=== PATIENT | female | born 1990 | race Caucasian/White ===

== ENCOUNTER 2016-12-29 20:13 | Emergency (ER) | payer BC ==
[~2016-12-29] VITALS: Ht 165.1 cm; Wt 73.4 kg
[~2016-12-29 20:13] MED LIST: ONDA4TAB7 SL
[2016-12-29 20:24] VITALS: TEMP 36.7; Ht 165.1 cm; Wt 73.4 kg
--- NOTE | 2016-12-29 20:31 | EMERGENCY ROOM VISIT NOTE ---
History Report prepared by Nataliia: Hayden Barboza Under the Supervision of: Dr. Terrance Boston M.D. First contact with patient: 20:26 Chief Complaint: BLEEDING Stated Complaint: TONSILS OUT THIS AM,BLEEDING,VOMITING History of Present Illness The patient is a 26 year old female who presents to the Emergency Room with complaints of persistent bleeding s/p tonsillectomy this morning. The patient has been spitting up blood. The patient also started vomiting today. The patient tried a nausea suppository which did not help. She had Phenergan just prior to arrival. The patient spoke with Dr. Carter, ENT, over the phone. She denies any history of bleeding problems. She is not on any blood thinners. She has not had anything to eat or drink since the surgery. Source of History: patient Onset: this morning Position: other (oropharynx) Quality: other (s/p tonsillectomy bleed) Timing: other (persistent) Associated Symptoms: + nausea, + vomiting Review of Systems See HPI for pertinent positives & negatives. A total of 10 systems reviewed and were otherwise negative. Past Medical & Surgical Surgical Problems: (1) S/P tonsillectomy Family History No pertinent family history Social History Smoking Status: Never Smoker Marital Status: Current/Historical Medications Scheduled PRN Diphenhydramine Hcl (Benadryl Allergy), 25 MG PO DAILY PRN for ALLERGIC REACTION [Tylenol Codeine Liq], 15 ML PO Q4-6 PRN for Pain Allergies Coded Allergies: No Known Allergies (Unverified , 12/29/16) Physical Exam Vital Signs Date Time Temp Pulse Resp B/P Pulse Ox O2 Delivery O2 Flow Rate FiO2 12/30/16 02:03 95 20 131/80 98 12/30/16 00:38 105 20 115/77 96 Room Air 12/29/16 23:03 104 20 118/84 97 Room Air 12/29/16 20:24 36.7 119 20 118/77 97 Room Air Physical Exam GENERAL: Patient is in moderate distress and is uncomfortable appearing. HEENT: No acute trauma, normocephalic atraumatic, mucous membranes dry, no nasal congestion, no scleral icterus. Scabbed bilateral tonsillar beds with a small area of mild venous bleeding on the medial aspect of the left tonsillar bed, some burn casas over the proximal left uvula. NECK: No stridor, no adenopathy, no meningismus, trachea is midline. LUNGS: No dyspnea. Clear to auscultation and equal bilaterally. No wheeze, no rhonchi. HEART: Tachycardic, regular rhythm. No murmurs, rubs, gallops appreciated. ABDOMEN: Soft, nontender, bowel sounds positive, no masses appreciated, no peritonitis. BACK: No midline tenderness, no CVA tenderness EXTREMITIES: Normal motion all extremities, no cyanosis, no edema. NEUROLOGIC: Alert and oriented, no acute motor or sensory deficits, no focal weakness, cranial nerves grossly intact. SKIN: No rash, no jaundice, no diaphoresis. Medical Decision & Procedures Laboratory Results 12/29/16 21:32 12/29/16 20:55 Test 12/29/16 20:55 12/29/16 21:32 Anion Gap 9.0 mmol/L (3-11) Est Creatinine Clear Calc Drug Dose 126.6 ml/min Estimated GFR () 139.6 Estimated GFR (Non- 120.5 BUN/Creatinine Ratio 15.7 (10-20) Calcium Level 8.6 mg/dl (8.5-10.1) Red Blood Count 4.07 M/uL (4.2-5.4) Mean Corpuscular Volume 86.2 fL (80-100) Mean Corpuscular Hemoglobin 30.0 pg (25-34) Mean Corpuscular Hemoglobin Concent 34.8 g/dl (32-36) RDW Standard Deviation 37.8 fL (36.4-46.3) RDW Coefficient of Variation 12.1 % (11.5-14.5) Mean Platelet Volume 9.0 fL (7.4-10.4) Laboratory results as reviewed by me. Medications Administered Medications (Trade) Dose Ordered Sig/Janna Route Start Time Stop Time Status Last Admin Dose Admin Fentanyl Citrate (Fentanyl Inj) 50 mcg NOW STAT IV 12/29/16 20:32 12/29/16 20:33 DC 12/29/16 20:54 50 MCG Ondansetron HCl 4 mg 4 mg NOW STAT IV 12/29/16 20:32 12/29/16 20:33 DC 12/29/16 20:51 4 MG Sodium Chloride (Nss 1000ml) 1,000 ml @ 999 mls/hr Q1H1M STAT IV 12/29/16 20:32 12/29/16 21:32 DC 12/29/16 20:54 999 MLS/HR Hydromorphone HCl 1 mg 1 mg NOW STAT IV 12/29/16 22:00 12/29/16 22:02 DC 12/29/16 22:04 1 MG Sodium Chloride (Nss 1000ml) 1,000 ml @ 200 mls/hr Q5H IV 12/29/16 22:00 12/30/16 02:37 DC 12/29/16 22:06 200 MLS/HR Ondansetron HCl (Zofran Inj) 4 mg NOW STAT IV 12/29/16 23:26 12/29/16 23:27 DC 12/29/16 23:32 4 MG Dexamethasone Sodium Phosphate (Decadron Inj) 10 mg NOW ONCE IV 12/30/16 00:45 12/30/16 00:46 DC 12/30/16 00:43 10 MG Acetaminophen/ Hydrocodone Bitart (Hydrocod/Apap Elix 7.5/325MG/ 15ML Home Pack) 1 homepack UD ONCE PO 12/30/16 00:45 12/30/16 00:46 DC 12/30/16 00:42 1 HOMEPACK Ondansetron HCl (ZOFRAN ODT 4MG Home Pack) 2 homepack UD ONCE PO 12/30/16 00:45 12/30/16 00:46 DC 12/30/16 00:43 2 HOMEPACK ED Course 2027: The patient was evaluated in room B4b. A complete history and physical exam was performed. 2031: NSS 1000 ml @ 999 mls/hr, Zofran 4 mg IV, Fentanyl 50 mcg IV. 2049: ENT consulted. 2129: Dr. Pleitez, ENT is at bedside with the patient. He will attempt to cauterize the wound. 0: NSS 1000 ml @ 200 mls/hr, Dilaudid 1 mg IV. 2220: The patient is feeling much better. She will get another liter of fluid. 2255: The patient will attempt to take some PO fluids. 2320: The patient is not sure if she wants to stay in the hospital yet. She will try more Zofran. 2326: Zofran 4 mg IV. Medical Decision 26 yr old female arrives with complaint of intractable emesis post tonsillectomy. Given zofran/pain meds with improvement though still vomiting with even sips of water. Was seen by ENT who cauterized mild bleeding area left tonsillar bed. Decadron given for uvula erythema and intractable vomiting. Still unable to keep down liquids even after many hours in department. Has been using rectal phenergan at home without success. Will have hospitalist evaluate for monitoring overnight. Consults Time Called: 2039 Consulting Physician: Dr. Pleitez, ENT Returned Call: 2049 Impression Primary Impression: Post-tonsillectomy hemorrhage Additional Impressions: Intractable vomiting Dehydration Scribe Attestation The scribe's documentation has been prepared under my direction and personally reviewed by me in its entirety. I confirm that the note above accurately reflects all work, treatment, procedures, and medical decision making performed by me. Departure Information Dispostion Home / Self-Care Referrals Eugene Carter D.O. Patient Instructions My [facility] Additional Instructions Continue to follow instructions as reviewed by ENT physician. Return at any time if you feel symptoms are worsening or other concerns, we are always here to help. You have received a narcotic pain medication. These medications may cause drowsiness and should not be used with other sedative medications. Do not drive , drink alcohol, perform dangerous activities, nor make important decisions after taking these medications. FDC use or inappropriate use may lead to addiction. Problem Qualifiers Additional Impressions: Intractable vomiting Vomiting type: unspecified Nausea presence: with nausea Qualified Codes: R11.2 - Nausea with vomiting, unspecified
[2016-12-29] MEDS ORDERED: SODIUM CHLORIDE 0.9% 1000ML 1,000 ML IV STA (20:32)
[2016-12-29] MEDS ORDERED: FENTANYL CITRATE INJ 50 MCG/1 ML 2 ML VIAL IV STA (20:32)
[2016-12-29] MEDS ORDERED: ONDANSETRON INJ 2 MG/ML 2 ML VIAL IV STA ×2 (20:32→23:26)
[2016-12-29] MEDS ORDERED: TYLENOL CODEINE PO (21:13)
[2016-12-29] MEDS ORDERED: DIPH1TAB PO (21:13)
[2016-12-29 21:34] LABS: BUN/CREATININE RATIO 15.7 (10-20); CALCIUM 8.6 mg/dl (8.5-10.1); CREATININE 0.67 mg/dl (0.60-1.20); POTASSIUM 3.7 mmol/L (3.5-5.1)
[2016-12-29 21:39] LABS: HEMATOCRIT 35.1 % (37-47); MEAN CELL VOLUME 86.2 fL (80-100); MEAN CORPUSCULAR HGB CONC 34.8 g/dl (32-36); PLATELET COUNT 286 K/uL (130-400); RED BLOOD COUNT 4.07 M/uL (4.2-5.4); WHITE BLOOD COUNT 11.68 K/uL (4.8-10.8)
[2016-12-29] MEDS ORDERED: SODIUM CHLORIDE 0.9% 1000ML 1,000 ML IV SCH (22:00)
[2016-12-29] MEDS ORDERED: HYDROmorphone INJ 1 MG/ML SYR IV STA (22:00)
[2016-12-30] MEDS ORDERED: HYDROCODONE/APAP ELIX 60ML HOME PACK PO ONE (00:45)
[2016-12-30] MEDS ORDERED: DEXAMETHASONE SOD INJ 10 MG/ML VIAL IV ONE (00:45)
[2016-12-30] MEDS ORDERED: ONDANSETRON HOME PACK 4MG OD TAB PO ONE (00:45)
[2016-12-30 02:03] VITALS: BP 131/80; PULSE 95; O2SAT 98
--- NOTE | 2016-12-30 06:53 | ENT CONSULTATION ---
DATE OF CONSULTATION: 12/29/2016 REASON FOR CONSULTATION: I have been asked by Dr. Terrance Boston in the [facility] Emergency Room to evaluate this patient with post-tonsillectomy hemorrhage. HISTORY OF PRESENT ILLNESS: The patient is a 26-year-old female who is postoperative day zero status post tonsillectomy for history of recurrent acute tonsillitis by Dr. Eugene Carter at [facility] today. She has had problems with postoperative nausea and vomiting and upon vomiting she developed some bleeding from the left tonsillar fossa. Of note, she had bleeding in the recovery room, which required silver nitrate cauterization per patient's report. Estimated blood loss is 1/4 cup of blood. She has not been able to tolerate anything by mouth including her pain medicine. She was given Tylenol with codeine which she says sandoval and she is unable to tolerate it. She is asking for a different narcotic pain prescription. ALLERGIES: No known drug allergies. MEDICATIONS: Tylenol with Codeine. PAST MEDICAL HISTORY: Recurrent acute tonsillitis. PAST SURGICAL HISTORY: As above as well as status post wisdom tooth extraction. FAMILY HISTORY: Noncontributory. There are no bleeding disorders or malignant hyperthermia. SOCIAL HISTORY: The patient is and her is present in the room. She denies tobacco or illicit drug use. She drinks alcohol rarely. REVIEW OF SYSTEMS: The patient has expected postoperative pain. She has significant nausea and vomiting, but the nausea has improved with some antiemetic medication given in the Emergency Room. She is somewhat weak but feels better since getting some IV fluids here. PHYSICAL EXAMINATION: GENERAL: This is a pale young adult white female in no acute distress. VITAL SIGNS: She is afebrile. She is tachycardic with a pulse of 119. Her respirations, blood pressure, and oxygen saturation are normal. HEENT: Oral cavity and oropharyngeal examination reveals that she is status post tonsillectomy, and there is some mild oozing of blood from the left superior pole as well as the mid pole on the lateral aspect. Also, there is evidence of prior cauterization today with some uvular edema and cautery artifact involving the tonsillar fossa as well as the uvula. After administration of Cetacaine topical anesthetic spray to the oral cavity and oropharynx, silver nitrate cautery was used to cauterize the left superior pole as well as the mid pole in the lateral aspect. The patient tolerated the cautery well with no complication. This resulted in cessation of the oozing of blood with no further bleeding or blood clot. The patient was reevaluated several times to ensure that there was no further bleeding. The patient is awake and alert and oriented x3. She has a normal respiratory effort. She has a normal voice. IMPRESSION AND PLAN: A 26-year-old female postoperative day 0 status post tonsillectomy with post-tonsillectomy hemorrhage as well as postoperative nausea and vomiting. She tolerated the cautery in the Emergency Room well with no further bleeding. She was counseled to have a soft diet for 2 weeks and take it easy for 2 weeks. I asked her to call Dr. Carter tomorrow to give him an update and I will contact him as well. I have asked the Emergency Room staff to give patient a prescription for Lortab 7.5 mg/325 mg/15 mL with 5 to 15 mL p.o. q. 4 hours p.r.n. for severe pain. I have also asked them to give her Decadron 10 mg IV for postoperative uvular swelling as well as for the antiemetic effects of steroids. If you have any questions regarding this consultation, please do not hesitate to contact me. HOSSEIN
== END 2016-12-30 02:04 | disposition home or self-care (01) ==
LOC: C.EDB 20:15 → MERGE 20:15 → C.EDB 12-30 02:04
DX: K91.840 Postprocedural hemorrhage of a digestive system organ or structure following a digestive system procedure (principal); R11.2 Nausea with vomiting, unspecified; E86.0 Dehydration; Y83.8 Other surgical procedures as the cause of abnormal reaction of the patient, or of later complication, without mention of misadventure at the time of the procedure

== ENCOUNTER 2017-01-07 16:44 | Emergency (ER) | payer BC ==
[~2017-01-07] VITALS: Ht 165.1 cm; Wt 71.3 kg
[~2017-01-07 16:44] MED LIST changes: +DIPH1TAB87 PO; +TYLENOL CODEINE PO
[2017-01-07 16:49] VITALS: TEMP 36.6; Ht 165.1 cm; Wt 71.3 kg
[2017-01-07] MEDS ORDERED: ONDA4TAB46 SL (17:22)
[2017-01-07] MEDS ORDERED: SODIUM CHLORIDE 0.9% 1000ML 1,000 ML IV ONE (17:30)
[2017-01-07 17:40] LABS: BASO % 0.7 %; BASO ABS # 0.05 K/uL (0-0.2); COMPLETE YES; EOS % 2.5 %; HEMATOCRIT 40.2 % (37-47); IG% 0.1 %; LYMPH % 23.7 %; LYMPH ABS # 1.61 K/uL (1.2-3.4); MEAN CORPUSCULAR HEMOGLOBIN 31.3 pg (25-34); MEAN CORPUSCULAR HGB CONC 35.6 g/dl (32-36); MEAN PLATELET VOLUME 9.1 fL (7.4-10.4); MONO % 10.6 %; NEUT % 62.4 %; PLATELET COUNT 286 K/uL (130-400); RED BLOOD COUNT 4.57 M/uL (4.2-5.4); WHITE BLOOD COUNT 6.79 K/uL (4.8-10.8)
[2017-01-07] MEDS ORDERED: MoRPHine SULFATE 4 MG/ML 1 ML CARP\\VIAL IV ONE (17:45)
[2017-01-07 17:56] LABS: BUN/CREATININE RATIO 10.8 (10-20); CALCIUM 9.3 mg/dl (8.5-10.1); CREATININE 0.75 mg/dl (0.60-1.20); POTASSIUM 3.7 mmol/L (3.5-5.1)
[2017-01-07 17:59] LABS: ALB/GLOB RATIO 0.9 (0.9-2)
[2017-01-07 20:30] VITALS: BP 117/84; PULSE 89; O2SAT 99
--- NOTE | 2017-01-07 21:41 | EMERGENCY ROOM VISIT NOTE ---
History First contact with patient: 16:52 Chief Complaint: THROAT PAIN/INJURY Stated Complaint: TONSILS BLEEDING History of Present Illness The patient is a 27 year old female who presents to the Emergency Room with complaints of bleeding in her throat that began earlier today. The patient is postoperative day [address] Carter. The patient states that she and her life partner were in a class, when the patient felt blood in the back of her throat. She did produce a small blood clot, which she was able to spit out. She has not had coughing or bloody vomitus. The patient did require cauterization on day 0 postoperatively at this facility. The patient has been taking liquid Gates at home for her pain. She is without current active bleeding, lightheadedness, or dizziness. She rates her current discomfort a 5/10. Review of Systems More than 10 systems were reviewed and otherwise negative with the exception of history of present illness. Past Medical/Surgical History Medical Problems: (1) Asthma Surgical Problems: (1) S/P tonsillectomy Family History No pertinent family history Seizures Social History Smoking Status: Never Smoker Marital Status: Occupation Status: employed Current/Historical Medications Scheduled PRN Diphenhydramine Hcl (Benadryl Allergy), 25 MG PO DAILY PRN for ALLERGIC REACTION Ondansetron Hcl (Zofran), 4 MG SL Q6 PRN for Nausea [Tylenol Codeine Liq], 15 ML PO Q4-6 PRN for Pain Allergies Coded Allergies: No Known Allergies (Unverified , 12/26/14) Physical Exam Vital Signs Date Time Temp Pulse Resp B/P Pulse Ox O2 Delivery O2 Flow Rate FiO2 01/07/17 20:30 89 20 117/84 99 Room Air 01/07/17 18:53 91 18 116/81 100 Room Air 01/07/17 17:03 Room Air 96 01/07/17 16:49 36.6 112 20 133/92 98 Room Air Pain Rating (0-10): 7.0 Physical Exam VITALS: Vitals are noted on the nurse's note and reviewed by myself. Vital signs stable. GENERAL: Well-developed, well-nourished, white female, who is in no acute distress and resting comfortably. Patient is cooperative with the examination. HEAD: Normocephalic atraumatic. EARS: External ear normal. External auditory canals clear, tympanic membranes pearly buckley without erythema or effusion bilaterally. EYES: Pupils equal round and reactive to light and accommodation. Conjunctivae without injection, sclerae without icterus. Extraocular movements intact. NOSE: Patent, turbinates without inflammation or discharge. MOUTH: Mucous membranes moist. Tonsils are surgically absent. The left tonsillar fossa appears with good scab. There is a pinpoint area of red blood in the anterior aspect of the tonsillar fossa without active bleeding or red clot. No abscess appreciated. Uvula is midline. Airway is patent. NECK: Supple without nuchal rigidity. No lymphadenopathy. No thyromegaly. Cervical spine is nontender. HEART: Regular rate and rhythm without murmurs gallops or rubs. LUNGS: Clear to auscultation bilaterally without wheezes, rales or rhonchi. No retractions or accessory muscle use. Medical Decision & Procedures Laboratory Results 01/07/17 17:30 Red Blood Count 4.57, Mean Corpuscular Volume 88.0, Mean Corpuscular Hemoglobin 31.3, Mean Corpuscular Hemoglobin Concent 35.6, Mean Platelet Volume 9.1, Neutrophils (%) (Auto) 62.4, Lymphocytes (%) (Auto) 23.7, Monocytes (%) (Auto) 10.6, Eosinophils (%) (Auto) 2.5, Basophils (%) (Auto) 0.7, Neutrophils # (Auto ) 4.23, Lymphocytes # (Auto) 1.61, Monocytes # (Auto) 0.72, Eosinophils # (Auto ) 0.17, Basophils # (Auto) 0.05 01/07/17 17:30 Test 01/07/17 17:30 White Blood Count 6.79 K/uL (4.8-10.8) Red Blood Count 4.57 M/uL (4.2-5.4) Hemoglobin 14.3 g/dL (12.0-16.0) Hematocrit 40.2 % (37-47) Mean Corpuscular Volume 88.0 fL (80-100) Mean Corpuscular Hemoglobin 31.3 pg (25-34) Mean Corpuscular Hemoglobin Concent 35.6 g/dl (32-36) Platelet Count 286 K/uL (130-400) Mean Platelet Volume 9.1 fL (7.4-10.4) Neutrophils (%) (Auto) 62.4 % Lymphocytes (%) (Auto) 23.7 % Monocytes (%) (Auto) 10.6 % Eosinophils (%) (Auto) 2.5 % Basophils (%) (Auto) 0.7 % Neutrophils # (Auto) 4.23 K/uL (1.4-6.5) Lymphocytes # (Auto) 1.61 K/uL (1.2-3.4) Monocytes # (Auto) 0.72 K/uL (0.11-0.59) Eosinophils # (Auto) 0.17 K/uL (0-0.5) Basophils # (Auto) 0.05 K/uL (0-0.2) RDW Standard Deviation 39.0 fL (36.4-46.3) RDW Coefficient of Variation 12.2 % (11.5-14.5) Immature Granulocyte % (Auto) 0.1 % Immature Granulocyte # (Auto) 0.01 K/uL (0.00-0.02) Anion Gap 9.0 mmol/L (3-11) Est Creatinine Clear Calc Drug Dose 110.6 ml/min Estimated GFR () 125.7 Estimated GFR (Non- 108.5 BUN/Creatinine Ratio 10.8 (10-20) Calcium Level 9.3 mg/dl (8.5-10.1) Total Bilirubin 0.5 mg/dl (0.2-1) Aspartate Amino Transf (AST/SGOT) 18 U/L (15-37) Alanine Aminotransferase (ALT/SGPT) 19 U/L (12-78) Alkaline Phosphatase 70 U/L (45-117) Total Protein 8.4 gm/dl (6.4-8.2) Albumin 4.0 gm/dl (3.4-5.0) Globulin 4.4 gm/dl (2.5-4.0) Albumin/Globulin Ratio 0.9 (0.9-2) Medications Administered Medications (Trade) Dose Ordered Sig/Janna Route Start Time Stop Time Status Last Admin Dose Admin Sodium Chloride (Nss 1000ml) 1,000 ml @ 999 mls/hr Q1H1M ONCE IV 01/07/17 17:30 01/07/17 18:30 DC 01/07/17 18:04 999 MLS/HR Morphine Sulfate (MoRPHine SULFATE INJ) 4 mg NOW ONCE IV 01/07/17 17:45 01/07/17 17:46 DC 01/07/17 18:04 4 MG ED Course Physical exam and history were performed. Nursing notes and EMR were reviewed. Patient appears to have had an episode of slight post tonsillectomy bleeding. This occurred about 2 hours ago. On arrival here today the patient is without active bleeding. I discussed the case with my attending physician, Dr. Galvan , and then with the on-call ENT, Dr Quiñones. Based on the patient's symptoms and vital signs Dr Quiñones recommended the patient be given a hydrated and peroxide and saline gargle, IV hydration, and monitoring here in the ER. The patient blood work is as above and was reviewed. She does not have a significantly elevated white blood cell count, gross anemia, bandemia, or significant electrolyte imbalance. There was no rebleeding after gargling. The patient was reevaluated several times throughout her ER stay. In total she was kept here for greater than 4 hours. The patient did not have recurrent bleeding or any worsening of her symptoms. Overall the patient does not appear to need emergent cauterization at this time. The patient will need to follow with her surgeon, preferably on Monday or Monday after the weekend. To help facilitate this appointment I did engage case management to help contacted the [facility] office Monday on the patient's behalf . The patient feels comfortable with discharge home. She understands the importance of returning to the ER immediately should rebleeding occur. She is to continue a liquid diet. The patient was pleased with this plan and rated her discomfort a 2/10 at the time of departure. The chart was completed utilizing [employer] Speech Voice Recognition Software. Grammatical errors, random word insertions, pronoun errors, and incomplete sentences are an occasional consequence of this system due to software limitations, ambient noise, and hardware issues. Any formal questions or concerns about the content, text, or information contained within the body of this dictation should be directly addressed to the provider for clarification. . Medical Decision Differential diagnosis includes, but is not limited to: Post-tonsillectomy bleed , pharyngitis, abscess, infection, and others Impression Primary Impression: Post-tonsillectomy hemorrhage Departure Information Dispostion Home / Self-Care Condition FAIR Referrals Eugene Carter D.O. Forms HOME CARE DOCUMENTATION FORM, IMPORTANT VISIT INFORMATION Patient Instructions My [facility] Additional Instructions You were seen and evaluated today on an emergency basis only. This is not a substitute for, or an effort to provide, complete comprehensive medical care. It is not possible to recognize and treat all injuries or illnesses in a single emergency department visit. For this reason it is recommended that you followup with ENT, Dr Carter's office , on Monday or Monday this week for ongoing care and evaluation. We will have case management call in the morning from the ER to help facilitate your appointment. Continue your medications as previously prescribed. Eat a very soft food and liquid diet until otherwise instructed by ENT. You are welcome to return to the emergency department anytime with new, worsening, or concerning symptoms.
== END 2017-01-07 20:43 | disposition home or self-care (01) ==
LOC: C.EDB 16:46 → C.EDD 20:43
DX: J95.831 Postprocedural hemorrhage of a respiratory system organ or structure following other procedure (principal); J45.909 Unspecified asthma, uncomplicated; Z82.0 Family history of epilepsy and other diseases of the nervous system

== ENCOUNTER → 2017-04-26 | Outpatient (CLI) | payer BC ==
[~2017-04-26] MED LIST changes: +DIPH1TAB PO; -DIPH1TAB87 PO; +ONDA4TAB46 SL; -ONDA4TAB7 SL
[2017-04-26 12:14] LABS: HEMATOCRIT 39.2 % (37-47); MEAN CELL VOLUME 89.9 fL (80-100); MEAN CORPUSCULAR HEMOGLOBIN 30.5 pg (25-34); MEAN PLATELET VOLUME 9.4 fL (7.4-10.4); PLATELET COUNT 341 K/uL (130-400); RED BLOOD COUNT 4.36 M/uL (4.2-5.4); WHITE BLOOD COUNT 6.56 K/uL (4.8-10.8)
[2017-04-26 12:40] LABS: PROLACTIN 8.13 ng/mL
[2017-04-26 12:46] LABS: MEAN CORPUSCULAR HGB CONC 33.9 g/dl (32-36); RUBELLA SCREEN IgG (AT CCH) IMMUNE (IMMUNE)
--- NOTE | 2017-05-03 12:18 | CODING QUERY MEDICAL NECESSITY ---
CQSUPPORTING DIAGNOSIS NEEDED A supporting diagnosis is required for the test/procedure performed on this patient in order for us to be reimbursed by the patient's insurance. Please provide a supporting diagnosis for the following test/procedure listed below next to the test name along with your signature. *If there is no additional diagnosis for this patient that would support the following test/procedure please document that below next to the test/procedure. Test(s)/Procedure(s) that require a supporting diagnosis: DOS 04/26/17 VITAMIN D TEST SCREENING FOR SEXUALLY TRANSMITTED DISEASE Provider Signature: Date: Thank you Zoila Quinonez Health Information Management Once completed, please kindly fax back to [phone] For questions please call [phone]
== END | disposition home or self-care (01) ==
LOC: C.LAB1850 09:35
PROVIDERS: ATTEND Obstetrics & Gynecology Reproductive Endocrinology
DX: Z31.41 Encounter for fertility testing (principal); Z01.83 Encounter for blood typing; Z11.3 Encounter for screening for infections with a predominantly sexual mode of transmission; Z11.4 Encounter for screening for human immunodeficiency virus [HIV]; Z11.9 Encounter for screening for infectious and parasitic diseases, unspecified; Z13.0 Encounter for screening for diseases of the blood and blood-forming organs and certain disorders involving the immune mechanism; Z13.29 Encounter for screening for other suspected endocrine disorder; Z13.21 Encounter for screening for nutritional disorder; E07.9 Disorder of thyroid, unspecified

== ENCOUNTER → 2017-05-18 | Outpatient (CLI) | payer BC | END | disposition home or self-care (01) | LOC: C.LAB1850 09:01 | PROVIDERS: ATTEND Obstetrics & Gynecology Reproductive Endocrinology | DX: Z31.41 Encounter for fertility testing (principal) ==

== ENCOUNTER → 2017-06-20 | Outpatient (CLI) | payer BC | END | disposition home or self-care (01) | LOC: C.LAB1850 15:59 | PROVIDERS: ATTEND Obstetrics & Gynecology Reproductive Endocrinology | DX: O09.00 Supervision of pregnancy with history of infertility, unspecified trimester (principal) ==

== ENCOUNTER → 2017-08-25 | Outpatient (CLI) | payer BC ==
[~2017-08-25] MED LIST changes: -DIPH1TAB PO; +DIPH1TAB87 PO
== END | disposition home or self-care (01) ==
LOC: C.LAB1850 08:30
PROVIDERS: ATTEND Obstetrics & Gynecology Reproductive Endocrinology
DX: Z31.41 Encounter for fertility testing (principal); O09.00 Supervision of pregnancy with history of infertility, unspecified trimester

== ENCOUNTER → 2017-09-22 | Outpatient (CLI) | payer BC | END | disposition home or self-care (01) | LOC: C.LAB1850 10:59 | PROVIDERS: ATTEND Obstetrics & Gynecology Reproductive Endocrinology | DX: Z31.41 Encounter for fertility testing (principal); O09.00 Supervision of pregnancy with history of infertility, unspecified trimester ==

== ENCOUNTER → 2017-10-05 | Outpatient (CLI) | payer BC | END | disposition home or self-care (01) | LOC: C.LAB1850 10:56 | PROVIDERS: ATTEND Obstetrics & Gynecology Reproductive Endocrinology | DX: Z31.41 Encounter for fertility testing (principal) ==

== ENCOUNTER 2019-11-08 15:32 | Inpatient (IN) ==
[2019-11-08] MEDS ORDERED: OPTIRAY 320 125ml IV PRN (15:39)
--- NOTE | 2019-11-08 15:53 | CT Scan Report ---
CT SCAN OF THE BRAIN WITHOUT IV CONTRAST CLINICAL HISTORY: Strokelike symptoms. Right-sided weakness. COMPARISON STUDY: No priors. TECHNIQUE: Unenhanced axial CT scan of the brain is performed from the vertex to the skull base. A d ose lowering technique was utilized adhering to the principles of ALARA. CT DOSE: 638.56 mGycm FINDINGS: Brain parenchyma: The brain parenchyma is normal in appearance. There is no hemorrhage, mass effect, or evidence of acute territorial ischemia by CT criteria. Bradshaw-white matter differentiation is preser angy. No extra-axial fluid collection is seen. Ventricles, sulci, cisterns: Normal in configuration. Intracranial vasculature: The visualized intracranial vasculature at the skull base is normal in appe arance. Calvarium: Unremarkable. Sinuses and mastoids: The visualized paranasal sinuses are clear. The mastoid air cells are well pneu matized. Orbits: The bony orbits are grossly intact. IMPRESSION: No acute intracranial abnormality. ACT 112: Negative or not required by law. Electronically signed by: Radames Bryan M.D. 11/08/2019 3:51 PM
--- NOTE | 2019-11-08 16:06 | CT Scan Report ---
CT ANGIOGRAM OF THE BRAIN; CT ANGIOGRAM OF THE NECK CLINICAL HISTORY: Right-sided weakness. COMPARISON STUDY: Unenhanced CT of the brain performed concurrently on 11/08/2019. CT of the neck dennis ed 10/25/2019. TECHNIQUE: Following the IV administration of 118 of Optiray 320, CT angiogram of the head and neck w as performed from the aortic arch to the vertex. Images are reviewed in the axial, sagittal, and vanessa nal planes. 3-D MIPS images are created and assessed. IV contrast was administered without complicati on. All measurements were calculated based on NASCET criteria. A dose lowering technique was utilize d adhering to the principles of ALARA. The examination is compromised by motion artifact. CT DOSE: 979.19 mGycm FINDINGS: Brain parenchyma: The brain parenchyma is normal in appearance. There is no hemorrhage, mass effect, or evidence of acute territorial ischemia by CT criteria. There is no evidence of enhancing mass lesi on on the angiogram phase images. The ventricles, sulci, and cisterns are normal in configuration. Gr ay-white matter differentiation is preserved. No extra-axial fluid collection is seen. Thoracic aorta: Visualized portions of the thoracic aorta are normal in caliber. The aortic arch demo nstrates standard 3-vessel anatomy. Right carotid arterial system: The right common carotid artery is widely patent, as are the right int ernal and external carotid arteries. Left carotid arterial system: The left common carotid artery is widely patent, as are the left sports marketing internship al and external carotid arteries. Vertebral arteries: The vertebral arteries are widely patent and codominant. Subclavian arteries: Widely patent bilaterally. Intracranial vasculature: There is origin of the left posterior cerebral artery. The internal c arotid arteries are patent at the skull base, as are the anterior and middle cerebral arteries bilate rally. There is a common origin of the anterior cerebral arteries. The right A1 segment is diminutive . The vertebrobasilar system and posterior cerebral arteries are widely patent. The vertebral arterie s are codominant. There is no aneurysm, high-grade stenosis, or focal vessel cut off seen throughout the intracranial circulation. Jugular veins: Patent bilaterally. Dural sinuses: Patent. Lung apices: Partially visualized upper lobe lung parenchyma appears clear. Soft tissues: There is subcutaneous gas and infiltration identified in the soft tissues of the right neck. This extends from the mid neck to the supraclavicular region. The visualized pharyngeal soft ti ssues are normal in appearance noting angiographic phase technique. The oropharyngeal airway appears widely patent. The salivary and thyroid glands are normal in appearance. Shotty cervical lymph nodes are again seen. Skeletal structures: The calvarium appears intact. The cervical spine is within normal limits. No lyt ic or blastic lesion is seen. Sinuses and mastoids: The paranasal sinuses are clear. The mastoid air cells are well pneumatized. IMPRESSION: 1. There is no hemorrhage, mass effect, or evidence of acute territorial ischemia by CT criteria noti ng angiographic phase technique. 2. Unremarkable CT angiogram of the brain. 3. Unremarkable CT angiogram of the neck. 4. There is subcutaneous gas and soft tissue infiltration identified in the soft tissues of the right neck, which is new from 10/25/2019. This could potentially be on an infectious basis, or could be iat rogenic if there has been recent instrumentation/surgery. Clinical correlation will be essential. ACT 112: Negative or not required by law. Electronically signed by: Radames Bryan M.D. 11/08/2019 4:05 PM
[2019-11-08 16:14] LABS: Basophils # (auto) 0.02 K/uL (0-0.2); Basophils % (auto) 0.2 %; Eosinophils # (auto) 0.02 K/uL (0-0.5); Eosinophils % (auto) 0.2 %; Hematocrit (blood only) 27.3 % (37-47); Hemoglobin 9.2 g/dL (12.0-16.0); Immature Granulocytes # (auto) 0.02 K/uL (0.00-0.02); Immature Granulocytes % (auto) 0.2 %; Lymphocytes # (auto) 0.79 K/uL (1.2-3.4); Lymphocytes % (auto) 7.6 %; Mean Corpuscular Hemoglobin 30.2 pg (25-34); Mean Corpuscular Hgb Conc 33.7 g/dL (32-36); Mean Corpuscular Volume 89.5 fL (80-100); Mean Platelet Volume 8.8 fL (7.4-10.4); Monocytes # (auto) 0.07 K/uL (0.11-0.59); Monocytes % (auto) 0.7 %; Neutrophils # (auto) 9.41 K/uL (1.4-6.5); Neutrophils % (auto) 91.1 %; Platelet Count 253 K/uL (130-400); RDW Coefficient of Variation 12.5 % (11.5-14.5); RDW Standard Deviation 40.4 fL (36.4-46.3); Red Blood Count 3.05 M/uL (4.2-5.4); White Blood Count 10.33 K/uL (4.8-10.8)
[2019-11-08 16:24] LABS: INR 1.3 (0.9-1.1); Partial Thromboplastin Time 27.7 Seconds (21.0-31.0)
--- NOTE | 2019-11-08 16:28 | History & Physical Report ---
Date of Service November 08, 2019 Assessment & Plan (1) Right hemiplegia: - Admit to PCU - Pt is s/p elective supraclavicular region exploration and removal of right neck nevus completed earlier today, Unknown as to what the cause of the pts RUE and RLE weakness is due to. Imaging studies of the head, neck and brain have been negative thus far. Will check MRI of the c spine now to r/o other causes of RUE weakness, possible that thoracic spine involvement could cause weakness in the RLE. Will await neurology recommendations. Supportive care. - Stroke order set completed - Neuro consulted, Dr. Camacho - Continue neuro checks, speech therapy and eval, NPO until then, aspiration pr ecautions, allow diet if passes swallow test - PT/OT consults, nonweightbearing of the RLE, passive ROM in Right leg and arm for now until able to perform active ROM - CTA of the Head and neck were reviewed and without significant findings regarding CVA. - MRI of the brain was also done while in the ER to evaluate for CVA however this was also negative - Ordered MRI C spine (2) Tachycardia: - Admit to PCU - Hemoglobin dropped to 9.2, baseline appears to be around 13-14, last checked on 10/30/2019. Possible blood loss during elective supraclavicular region exploration and removal of right neck nevus completed earlier today. - Recheck H&H at 2100 and trend with am labs. - Type and screened, will ask for blood consent to be obtained by ER or attendi ng, would not transfuse unless hgb < 7. - Continue IVFs - anxiety may also be playing a part, pt without pain. (3) Mass of right side of neck: -S/p ENT procedure: Dr. Pleitez surgical exploration of the right supraclavicular region, consider consultation of his team -Dressing per nursing -Checking MRI of the C spine to r/o compression of spinal cord possibly causing RUE weakness. Unknown at this time why the patient has issues with RLE weakness. She has sensation to light touch in all areas but states it is dulled in those areas. She has never had general anesthesia before, no known issues with anesthesia in general. Other surgeries include wisdom teeth extraction, tonsil extraction, hx of lymph node resection as a child. (4) Palpitations: -History of such, none currently (5) Obesity: -BMI of 31.7, diet and exercise to be encouraged. (6) Migraines: -History of such, uses Imitrex as outpatient (7) Seasonal allergies: -Stable, continue fexofenadine 180 mg daily (8) Vitamin D deficiency: -Continue daily supplementation -Last level was 15.4 on 10/31/18 (9) Asthma: -Stable, no recent flares, not on long-acting steroids or inhalers (10) DVT prophylaxis: -Teds, heparin subq as she cannot ambulate CODE STATUS: Full code Disposition: Patient from home, likely to remain in the hospital x1 to 2 days History of Present Illness Primary Care Provider: Dina Daily DO This is a 29 yo F with PMhx of asthma, migraines, obesity with BMI of 31.7, vitamin D deficiency, and seasonal allergies who presented to the ER as a stroke alert. The patient presented to the ER after an elective operation performed by ENT, Dr. Pleitez earlier today; removal of right neck nevus which measures 9 mm, and right supraclavicular exploration where it was found to have fibrosis and asymmetric fat, no lipoma, no definitive mass, and was thought likely related to previous excisional biopsy of the right supraclavicular lymph node as a child when she was diagnosed with cat scratch fever. The patient reports that she underwent her procedure today and was told that overall everything went well, and per chart her procedure had an uneventful intraoperative course. After surgery, which occurred around 1 PM, she was able to lift her bottom in bed but then realized she was unable to move her right arm or leg. She reports very minimal improvement since her surgical procedure. She has difficulty moving her neck to the right because she feels stiff, but is able to. She denies any pain in general. She is able to swallow without difficulty. Patient denies any acute pain over the area which was operated on on the right shoulder, she reports that there is still some numbness and tingling on the right side of her neck when palpated. She denies any difficulty breathing, shortness of breath, chest pain, chest pressure or palpitations. She has sensation to light touch in extremities but states it is dulled in nearly all areas on the right, not on the left. The patient was under general anesthesia and intubated during procedure. She has never had general anesthesia before, but no known issues with other forms of anesthesia in the past. Other surgeries include wisdom teeth extraction, tonsil extraction, hx of lymph node resection as a child. Her is at bedside, other questions and concerns were addressed. Pt found to be tachycardic with HR of 118 and maintains around 110, and RR of 31 improved to 20 while in the ER. Her hgb is found to be 9.2, where baseline is 13-14. INR = 1.3. Allergies Allergy/AdvReac Type Severity Reaction Status Date / Time No Known Allergies Allergy Verified 11/08/19 15:43 Home Medications Home Medications Medication Instructions Recorded Confirmed Type fexofenadine 180 mg PO DAILY PRN 10/05/19 11/08/19 History sumatriptan succinate 100 mg PO DAILY PRN 10/05/19 11/08/19 History cholecalciferol (vitamin D3) 2,000 2,000 units PO DAILY #30 tab 11/01/19 11/08/19 Rx unit tablet hydrocodone 5 mg-acetaminophen 325 See Rx Instructions PO Q4H PRN #30 11/07/19 11/08/19 Rx mg tablet tab Past Med/Surg History Medical History Environmental allergies History of shingles Hx of migraines Surgical History History of lymph node excision History of tooth extraction Hx of tonsillectomy Nausea and vomiting after administration of anesthetic agent Family History (Updated 11/08/19 @ 18:14 by Azra Rodriguez PA-C) Mother Breast cancer Migraine Seizure disorder Grandmother (Maternal) Migraine Other No significant family history Social History Preferred Language: Turkish Communication Ability: Effective Visual Impairment: No Limitations Hearing Ability: Normal Crude Unit Operator Required: No Beliefs That Will Affect Care: None marital status: Current Living Situation: Spouse Current Living Situation Comment: and two sons current occupational status: unemployed Other Information That Helps Us Care for You: No Feels Safe at Home: Yes Smoking Status: Never smoker Second Hand Exposure: No ; Hx Alcohol Use: Yes Alcohol type: hard liquor Hx Substance Use: No Childhood Exposure to Second-Hand Smoke: No Diet Comment: regular caffeine: Yes (coffee) during the past year weight has: remained stable Dental Care, Regularly: Yes Physical Activity Frequency: 1-2 Times per Week Physical Activity Frequency Comment: walking Seatbelt Use: always Sunscreen Use: Yes Do you think of yourself as: lesbian/de anda/homosexual Review of Systems Review of Systems: Constitutional: No fever, sweats or chills Eyes: No diplopia, no worsening or blurred vision ENT: normal hearing, no trouble swallowing Respiratory: No cough, sputum, dyspnea at rest or on exertion Cardiovascular: No chest pain, tightness or palpitations Abdomen: No pain, nausea, vomiting, diarrhea or constipation Musculoskeletal: no joint pain, calf pain, swelling Neurologic: + RUE and RLE weakness, + right neck numbness/tingling, no balance problems Psychiatric: No anxiety or depression Skin: No rash or itch Physical Exam Physical Exam: General: awake, alert, no apparent distress Head: Normocephalic, atraumatic, + tilted towards the left side ENT: PERRL, EOMI, no pharyngeal exudate, mucous membranes moist, + two surgical incisions over the right supraclavicular region Chest: Clear to auscultation, on room air, no adventitious breath sounds Cardiac: + sinus tach with HR in ~110, no murmur, no JVD, normal peripheral pulses, good capillary refill Abdominal: NABS x 4 quadrants, soft, nondistended, nontender to palpation, no rebound, guarding or tenderness Extremities: Normal inspection, no peripheral edema or erythema, calfs nontender to palpation Psych: Normal mood and affect Neuro: AAO x 3, strength diminished in the RUE, unable to squeeze with the right hand, +slight R facial droop, RLE unable to move, sensation to light touch is diminished throughout the right side. Left side is unaffected, speech is clear. Pt is able to answer all my questions without any difficulty and is able to recall events during my visit. Results & Data Vital Signs (Past 12 Hours) Vital Signs Temp Pulse Resp BP Pulse Ox 11/08/19 16:00 118 H 31 H 123/79 98 11/08/19 15:45 36.7 C 118 H 24 123/[address] ANGIOGRAM OF THE BRAIN; CT ANGIOGRAM OF THE NECK CLINICAL HISTORY: Right-sided weakness. COMPARISON STUDY: Unenhanced CT of the brain performed concurrently on 11/08/2019. CT of the neck dated 10/25/2019. TECHNIQUE: Following the IV administration of 118 of Optiray 320, CT angiogram of the head and neck was performed from the aortic arch to the vertex. Images are reviewed in the axial, sagittal, and coronal planes. 3-D MIPS images are created and assessed. IV contrast was administered without complication. All measurements were calculated based on NASCET criteria. A dose lowering technique was utilized adhering to the principles of ALARA. The examination is compromised by motion artifact. CT DOSE: 979.19 mGycm FINDINGS: Brain parenchyma: The brain parenchyma is normal in appearance. There is no hemorrhage, mass effect, or evidence of acute territorial ischemia by CT criteria. There is no evidence of enhancing mass lesion on the angiogram phase images. The ventricles, sulci, and cisterns are normal in configuration. Bradshaw- white matter differentiation is preserved. No extra-axial fluid collection is seen. Thoracic aorta: Visualized portions of the thoracic aorta are normal in caliber. The aortic arch demonstrates standard 3-vessel anatomy. Right carotid arterial system: The right common carotid artery is widely patent, as are the right internal and external carotid arteries. Left carotid arterial system: The left common carotid artery is widely patent, as are the left internal and external carotid arteries. Vertebral arteries: The vertebral arteries are widely patent and codominant. Subclavian arteries: Widely patent bilaterally. Intracranial vasculature: There is origin of the left posterior cerebral artery. The internal carotid arteries are patent at the skull base, as are the anterior and middle cerebral arteries bilaterally. There is a common origin of the anterior cerebral arteries. The right A1 segment is diminutive. The vertebrobasilar system and posterior cerebral arteries are widely patent. The vertebral arteries are codominant. There is no aneurysm, high-grade stenosis, or focal vessel cut off seen throughout the intracranial circulation. Jugular veins: Patent bilaterally. Dural sinuses: Patent. Lung apices: Partially visualized upper lobe lung parenchyma appears clear. Soft tissues: There is subcutaneous gas and infiltration identified in the soft tissues of the right neck. This extends from the mid neck to the supraclavicular region. The visualized pharyngeal soft tissues are normal in appearance noting angiographic phase technique. The oropharyngeal airway appears widely patent. The salivary and thyroid glands are normal in appearance. Shotty cervical lymph nodes are again seen. Skeletal structures: The calvarium appears intact. The cervical spine is within normal limits. No lytic or blastic lesion is seen. Sinuses and mastoids: The paranasal sinuses are clear. The mastoid air cells are well pneumatized. IMPRESSION: 1. There is no hemorrhage, mass effect, or evidence of acute territorial ischemia by CT criteria noting angiographic phase technique. 2. Unremarkable CT angiogram of the brain. 3. Unremarkable CT angiogram of the neck. 4. There is subcutaneous gas and soft tissue infiltration identified in the soft tissues of the right neck, which is new from 10/25/2019. This could potentially be on an infectious basis, or could be iatrogenic if there has been recent instrumentation/surgery. Clinical correlation will be essential. CT SCAN OF THE BRAIN WITHOUT IV CONTRAST CLINICAL HISTORY: Strokelike symptoms. Right-sided weakness. COMPARISON STUDY: No priors. TECHNIQUE: Unenhanced axial CT scan of the brain is performed from the vertex to the skull base. A dose lowering technique was utilized adhering to the principles of ALARA. CT DOSE: 638.56 mGycm FINDINGS: Brain parenchyma: The brain parenchyma is normal in appearance. There is no hemorrhage, mass effect, or evidence of acute territorial ischemia by CT criteria. Bradshaw-white matter differentiation is preserved. No extra-axial fluid collection is seen. Ventricles, sulci, cisterns: Normal in configuration. Intracranial vasculature: The visualized intracranial vasculature at the skull base is normal in appearance. Calvarium: Unremarkable. Sinuses and mastoids: The visualized paranasal sinuses are clear. The mastoid air cells are well pneumatized. Orbits: The bony orbits are grossly intact. IMPRESSION: No acute intracranial abnormality. MR brain wo con HISTORY: 29 years-old Female R weakness acute right-sided weakness COMPARISON: CT head, CTA head and neck of same day TECHNIQUE: Multiplanar multisequence MRI of the brain was obtained without the use of IV contrast. FINDINGS: Data Manager localizer images demonstrate no gross extracranial abnormality. There is no restricted diffusion to suggest acute or subacute infarct. Decreased signal on ADC map within the left cerebral hemisphere is artifactual. Midline structures including the corpus callosum, brainstem, optic chiasm, pituitary gland appear unremarkable and sagittal T1 series. Tiny subcentimeter lobular pineal gland cyst. No cerebellar tonsillar herniation. No acute intracranial hemorrhage, midline shift, abnormal extra-axial collectio n, hydrocephalus or intracranial mass. There are no significant T2/flair signal abnormalities of the brain parenchyma. Major flow voids at the level of the skull base appear patent. Mastoid air cells are clear. Mild mucosal thickening of the nasal terminates and ethmoid air cells. Skull, soft tissues and orbits are unremarkable. IMPRESSION: No acute intracranial abnormality, specifically there is no acute or subacute infarct. ACT 112: Negative or not required by law. The above report was generated using voice recognition software. It may contain grammatical, syntax or spelling errors. Electronically signed by: Henry Brown M.D. 11/08/2019 5:24 PM ECG Additional Comments: 08-NOV-2019 16:01:04 [facility]-EDSTAT ROUTINE RETRIEVAL Sinus tachycardia Otherwise normal ECG No previous ECGs available 25mm/s 10mm/mV 150Hz 9.0.9 12SL 241 GERARDO: 13 Unconfirmed Vent. rate 118 BPM SD interval 146 ms QRS duration 84 ms QT/QTc 340/476 ms P-R-T axes 76 89 9 Code Status & VTE Plan Code Status Full code - discussed with pt and her present at bedside. Supervising Physician Co-Signing Physician Notes Patient seen and examined, chart reviewed, case discussed with DANIEL Rodriguez and I agree with her assessment and plan as documented above. Briefly, patient is a 29yo C female with history of asthma, migraines, complex migraine in the past. She had an elective surgical excision of large neck nevus performed today by ENT under general anesthesia. Post-operatively she was unable to move her right arm or leg. She presented to the ER as a stroke alert. -Workup thus far unremarkable to include CT head, CTA head and neck and MRI brain. Complaining of NARVAEZ and inability to urinate. On physical exam she is afebrile, hemodynamically stable Dense right hemiparesis Right facial droop Labs and images reviewed Assessment/Plan - ?etiology uncertain. Possibly secondary to complex migraine, ?medication effects -Admit to PCU -Neuro checks -Awaiting MRI C-spine, although would not account for facial droop -Remainder of plan as above PG Care Time/CCT Total # of Minutes Spent Total Time Spent with Patient: Total time spent is greater than 50% in coordination of care (as documented) at patient's floor/unit and/or counseling patient: Coding Level of Care Code 15110 Initial Inpt Care Lvl 3 Diagnoses Right hemiplegia G81.91 Tachycardia R00.0 Mass of right side of neck R22.1 Palpitations R00.2 Obesity E66.9 Migraines G43.909 Seasonal allergies J30.2 Vitamin D deficiency E55.9 Asthma J45.909 DVT prophylaxis Z29.9
[2019-11-08 16:43] LABS: Alanine Aminotransferase 10 U/L (12-78); Albumin Level 2.2 gm/dl (3.4-5.0); Aspartate Aminotransferase 10 U/L (15-37); BUN Creatinine Ratio 25.6 (10-20); Blood Urea Nitrogen 10 mg/dl (7-18); Calcium 7.5 mg/dl (8.5-10.1); Carbon Dioxide 18 mmol/L (21-32); Chloride 106 mmol/L (98-107); Creatinine Clr Calc Pharmacy 223.1 ml/min; Est GFR (African American) > 150.0; Est GFR (Non-African American) 139.8; Glucose 76 mg/dl (70-99); Magnesium 1.3 mg/dl (1.8-2.4); Potassium 3.8 mmol/L (3.5-5.1); Sodium 135 mmol/L (136-145)
[2019-11-08 16:48] LABS: Albumin Globulin Ratio 0.9 (0.9-2); Alkaline Phosphatase 42 U/L (45-117); Bilirubin,Total 0.2 mg/dl (0.2-1); Globulin 2.5 gm/dl (2.5-4.0); Total Protein 4.7 gm/dl (6.4-8.2); Troponin I < 0.015 ng/ml (0-0.045)
--- NOTE | 2019-11-08 17:26 | Magnetic Resonance Report ---
MR brain wo con HISTORY: 29 years-old Female R weakness acute right-sided weakness COMPARISON: CT head, CTA head and neck of same day TECHNIQUE: Multiplanar multisequence MRI of the brain was obtained without the use of IV contrast. FINDINGS: Ground Water Pump Installer localizer images demonstrate no gross extracranial abnormality. There is no restricted diffusio n to suggest acute or subacute infarct. Decreased signal on ADC map within the left cerebral hemisphe re is artifactual. Midline structures including the corpus callosum, brainstem, optic chiasm, pituita ry gland appear unremarkable and sagittal T1 series. Tiny subcentimeter lobular pineal gland cyst. No cerebellar tonsillar herniation. No acute intracranial hemorrhage, midline shift, abnormal extra-axial collection, hydrocephalus or in tracranial mass. There are no significant T2/flair signal abnormalities of the brain parenchyma. Desirae r flow voids at the level of the skull base appear patent. Mastoid air cells are clear. Mild mucosal thickening of the nasal terminates and ethmoid air cells. Skull, soft tissues and orbits are unremark able. IMPRESSION: No acute intracranial abnormality, specifically there is no acute or subacute infarct. ACT 112: Negative or not required by law. The above report was generated using voice recognition software. It may contain grammatical, syntax o r spelling errors. Electronically signed by: Henry Brown M.D. 11/08/2019 5:24 PM
--- NOTE | 2019-11-08 17:31 | Electrocardiogram Report ---
Test Reason : Blood Pressure : / mmHG Vent. Rate : 118 BPM Atrial Rate : 118 BPM P-R Int : 146 ms QRS Dur : 084 ms QT Int : 340 ms P-R-T Axes : 076 089 009 degrees QTc Int : 476 ms Sinus tachycardia Otherwise normal ECG No previous ECGs available Confirmed by Antonio Douglas ([id number]) on 11/08/2019 5:31:35 PM Referred By: Confirmed By:Ren Douglas
[2019-11-08 17:57] LABS: Appearance Urine Clear (Clear); Bilirubin Urine Negative (Negative); Blood Urine Negative (Negative); Color Urine Yellow; Glucose Urine UA Negative (Negative); Ketones Urine 1+ (Negative); Leukocyte Esterase Urine Negative (Negative); Nitrite Urine Negative (Negative); Protein Urine Negative (Negative); Specific Gravity Urine 1.043 (1.000-1.030); Urobilinogen Urine Negative (Negative); pH Urine 7.5 (4.5-7.5)
[2019-11-08] MEDS ORDERED: ACETAMINOPHEN 325 MG TAB PO PRN (18:19)
[2019-11-08] MEDS ORDERED: PHARMACIST DISCHARGE MED REC CONSULT PRN (18:19)
[2019-11-08] MEDS ORDERED: ONDANSETRON INJ 2 MG/ML 2 ML VIAL IV PRN (18:19)
[2019-11-08] MEDS: MAGNESIUM SULFATE / D5W 1 GM/100 ML BAG IV SCH ×2 (19:48→20:42)
[2019-11-08] MEDS: SODIUM CHLORIDE 0.9% 1000ML 1,000 ML IV SCH (19:48)
[2019-11-08] MEDS: ACETAMINOPHEN 1,000 MG/100 ML VIAL IV PRN (20:05)
--- NOTE | 2019-11-08 20:34 | Emergency Department Note ---
Entered by Samantha Aceves acting as a scribe for Juan Camacho M.D. History of Present Illness General Chief complaint: Stroke/CVA Symptoms Time Seen by Provider: 11/08/19 15:33 Source: patient and EMS Mode of arrival: EMS History of Present Illness Provider complaint: stroke-like symptoms Onset (ago): hour(s) (TRAY CHECKER) Location: head Relieved By: + none Exacerbated By: + none Associated symptoms: no headaches The patient is a 29 year old female who presents to the Emergency Room with complaints of stroke-like symptoms which started prior to arrival. Per EMS, the patient was seen at [facility] for a procedure to remove a right sided mass in neck. They state that when the patient woke up from anesthesia, she was experiencing right sided weakness, tingling, and mild numbness. They note that the patient had right sided facial droop and slurred speech. The patient states that she is not able to move her right side. She denies any current headache. She notes that she is not on any blood thinners. She states that she has a history of migraines, but reports that this does not feel similar. Home Medications Home Medications Medication Instructions Recorded Confirmed Type fexofenadine 180 mg PO DAILY PRN 10/05/19 11/08/19 History sumatriptan succinate 100 mg PO DAILY PRN 10/05/19 11/08/19 History cholecalciferol (vitamin D3) 2,000 2,000 units PO DAILY #30 tab 11/01/19 11/08/19 Rx unit tablet hydrocodone 5 mg-acetaminophen 325 See Rx Instructions PO Q4H PRN #30 11/07/19 11/08/19 Rx mg tablet tab Allergies Allergy/AdvReac Type Severity Reaction Status Date / Time No Known Allergies Allergy Verified 11/08/19 15:43 Past Med/Surg History Medical History Environmental allergies History of shingles Hx of migraines Surgical History History of lymph node excision History of tooth extraction Hx of tonsillectomy Nausea and vomiting after administration of anesthetic agent Family History (Updated 11/08/19 @ 18:14 by Azra C Filipowicz, PA-C) Mother Breast cancer Migraine Seizure disorder Grandmother (Maternal) Migraine Other No significant family history Social History Preferred Language: Bengali Communication Ability: Effective Visual Impairment: No Limitations Hearing Ability: Normal Electronics Commodity Manager Required: No Beliefs That Will Affect Care: None marital status: Current Living Situation: Spouse Current Living Situation Comment: and two sons current occupational status: unemployed Other Information That Helps Us Care for You: No Feels Safe at Home: Yes Smoking Status: Never smoker Second Hand Exposure: No ; Hx Alcohol Use: Yes Alcohol type: hard liquor Hx Substance Use: No Childhood Exposure to Second-Hand Smoke: No Diet Comment: regular caffeine: Yes (coffee) during the past year weight has: remained stable Dental Care, Regularly: Yes Physical Activity Frequency: 1-2 Times per Week Physical Activity Frequency Comment: walking Seatbelt Use: always Sunscreen Use: Yes Do you think of yourself as: lesbian/de anda/homosexual Review of Systems See HPI for pertinent positives & negatives. and A total of 10 systems reviewed and were otherwise negative Physical Exam Vital Signs Vital Signs - 24 hr 11/08/19 15:45 11/08/19 16:00 11/08/19 16:15 Temperature 36.7 C Temperature Source Oral Pulse Rate 118 H 118 H 117 H Pulse Rate from SpO2 Sensor 118 H 120 H Respiratory Rate 24 31 H 16 Blood Pressure 123/79 123/79 133/87 Blood Pressure Mean 93 88 101 Pulse Oximetry 99 98 97 Oxygen Delivery Method Room Air Room Air Sepsis Recent Fever Within 48 Hours No Sepsis New/Unexplained Change in Mental Status No Sepsis Action Taken by Nursing No Action Required 11/08/19 16:30 Temperature Temperature Source Pulse Rate 131 H Pulse Rate from SpO2 Sensor 130 H Respiratory Rate 18 Blood Pressure 139/94 Blood Pressure Mean 102 Pulse Oximetry 97 Oxygen Delivery Method Sepsis Recent Fever Within 48 Hours Sepsis New/Unexplained Change in Mental Status Sepsis Action Taken by Nursing GENERAL: Awake, alert, fatigued appearing HENT: Normocephalic, atraumatic. Oropharynx unremarkable. EYES: Normal conjunctiva. Sclera non-icteric. NECK: Supple. No nuchal rigidity but mild R sided tenderness. Healing right clavicular surgical wound without bleeding. RESPIRATORY: Clear to auscultation. Normal respiratory effort. CARDIAC: Normal rate. Normal rhythm. Extremities warm and well perfused. GI: Soft, non-distended. No tenderness to palpation. MUSCULOSKELETAL: Atraumatic. Chest examination reveals no tenderness. LOWER EXTREMITIES: Calves are equal size bilaterally and non-tender. No edema NEURO: Right facial droop. Right arm and leg paralysis. Right diminished arm and leg sensation. No slurred speech. SKIN: Warm and dry. No rash or jaundice noted. Course Course 1531: The patient was evaluated in room B1, and a complete history and physical examination were performed. 1600: Dr. Leora Clark Neurology was contacted through the telecom. 1630: I discussed the patient's cause with Dr. Leora Clark Neurology, she recommends MRI. 1643: I reevaluated the patient and Dr. Qiu [facility] is at bedside. The patient will be transported to MRI. 1716: I reevaluated the patient. 1720: I reviewed the patient's [facility] She will evaluate the patient for further management. Administered Medications Sodium Chloride (Nss 1000ml) 1,000 mls @ 125 mls/hr IV .Q8H CORONA Stop: 11/09/19 18:59 Last Admin: 11/08/19 19:48 Dose: 125 mls/hr Documented by: [id number] Magnesium Sulfate/Dextrose (Magnesium Sulfate / D5w) 1 gm in 100 mls @ 100 mls/hr IV Q1H CORONA Stop: 11/08/19 21:29 Last Admin: 11/08/19 19:48 Dose: 100 mls/hr Documented by: [id number] Acetaminophen (Ofirmev) 1,000 mg in 100 mls @ 400 mls/hr IV Q8H PRN PRN Reason: Pain Stop: 11/11/19 19:38 Last Infusion: 11/08/19 20:25 Dose: 0 mls/hr Documented by: [id number] Admin: 11/08/19 20:05 Dose: 400 mls/hr Documented by: [id number] Ioversol (Optiray 320 125ml) 118 ml IV ONCE PRN PRN Reason: Interaction Checking Stop: 11/12/19 15:38 Last Admin: 11/08/19 15:39 Dose: 118 ml Documented by: [id number] Medical Decision Making Differential Diagnosis Differential diagnosis: Etiologies such as metabolic, infection, hypo/hyperglycemia, electrolyte abnormalities, cardiac sources, intracerebral event, toxicologic, neurologic, as well as others were entertained. Medical Records Attestation: I reviewed the patient's medical records. Home Medications Current Medication List: was personally reviewed by me Laboratory Data Attestation: I reviewed the patient's lab results. Result diagrams: 11/08/19 15:56 11/08/19 15:56 Lab Results 11/08/19 11/08/19 11/08/19 Range/Units 15:56 15:56 15:56 WBC 10.33 (4.8-10.8) K/uL RBC 3.05 L (4.2-5.4) M/uL Hgb 9.2 L (12.0-16.0) g/dL Hct 27.3 L (37-47) % MCV 89.5 (80-100) fL MCH 30.2 (25-34) pg MCHC 33.7 (32-36) g/dL RDW Std Deviation 40.4 (36.4-46.3) fL RDW Coeff of Huey 12.5 (11.5-14.5) % Plt Count 253 (130-400) K/uL MPV 8.8 (7.4-10.4) fL Immature Gran % (Auto) 0.2 % Neut % (Auto) 91.1 % Lymph % (Auto) 7.6 % Victoria % (Auto) 0.7 % Eos % (Auto) 0.2 % Baso % (Auto) 0.2 % Immature Gran # (Auto) 0.02 (0.00-0.02) K/uL Neut # (Auto) 9.41 H (1.4-6.5) K/uL Lymph # (Auto) 0.79 L (1.2-3.4) K/uL Victoria # (Auto) 0.07 L (0.11-0.59) K/uL Eos # (Auto) 0.02 (0-0.5) K/uL Baso # (Auto) 0.02 (0-0.2) K/uL PT 13.0 H (9.0-12.0) Seconds INR 1.3 H (0.9-1.1) APTT 27.7 (21.0-31.0) Seconds PTT Ratio 1.0 Sodium 135 L (136-145) mmol/L Potassium 3.8 (3.5-5.1) mmol/L Chloride 106 (98-107) mmol/L Carbon Dioxide 18 L (21-32) mmol/L Anion Gap 11.0 (3-11) BUN 10 (7-18) mg/dl Creatinine 0.40 L (0.6-1.2) mg/dl Est Cr Clr Drug Dosing 223.1 ml/min Est GFR ( Amer) > 150.0 Est GFR (Non-Af Amer) 139.8 BUN/Creatinine Ratio 25.6 H (10-20) Glucose 76 (70-99) mg/dl POC Glucose (70-99) mg/dl Calcium 7.5 L (8.5-10.1) mg/dl Magnesium 1.3 L (1.8-2.4) mg/dl Total Bilirubin 0.2 (0.2-1) mg/dl AST 10 L (15-37) U/L ALT 10 L (12-78) U/L Alkaline Phosphatase 42 L (45-117) U/L Troponin I < 0.015 (0-0.045) ng/ml Total Protein 4.7 L (6.4-8.2) gm/dl Albumin 2.2 L (3.4-5.0) gm/dl Globulin 2.5 (2.5-4.0) gm/dl Albumin/Globulin Ratio 0.9 (0.9-2) Blood Type Antibody Screen 11/08/19 11/08/19 Range/Units 15:56 15:57 WBC (4.8-10.8) K/uL RBC (4.2-5.4) M/uL Hgb (12.0-16.0) g/dL Hct (37-47) % MCV (80-100) fL MCH (25-34) pg MCHC (32-36) g/dL RDW Std Deviation (36.4-46.3) fL RDW Coeff of Huey (11.5-14.5) % Plt Count (130-400) K/uL MPV (7.4-10.4) fL Immature Gran % (Auto) % Neut % (Auto) % Lymph % (Auto) % Victoria % (Auto) % Eos % (Auto) % Baso % (Auto) % Immature Gran # (Auto) (0.00-0.02) K/uL Neut # (Auto) (1.4-6.5) K/uL Lymph # (Auto) (1.2-3.4) K/uL Victoria # (Auto) (0.11-0.59) K/uL Eos # (Auto) (0-0.5) K/uL Baso # (Auto) (0-0.2) K/uL PT (9.0-12.0) Seconds INR (0.9-1.1) APTT (21.0-31.0) Seconds PTT Ratio Sodium (136-145) mmol/L Potassium (3.5-5.1) mmol/L Chloride (98-107) mmol/L Carbon Dioxide (21-32) mmol/L Anion Gap (3-11) BUN (7-18) mg/dl Creatinine (0.6-1.2) mg/dl Est Cr Clr Drug Dosing ml/min Est GFR ( Amer) Est GFR (Non-Af Amer) BUN/Creatinine Ratio (10-20) Glucose (70-99) mg/dl POC Glucose 98 (70-99) mg/dl Calcium (8.5-10.1) mg/dl Magnesium (1.8-2.4) mg/dl Total Bilirubin (0.2-1) mg/dl AST (15-37) U/L ALT (12-78) U/L Alkaline Phosphatase (45-117) U/L Troponin I (0-0.045) ng/ml Total Protein (6.4-8.2) gm/dl Albumin (3.4-5.0) gm/dl Globulin (2.5-4.0) gm/dl Albumin/Globulin Ratio (0.9-2) Blood Type AB Negative Antibody Screen NEGATIVE Imaging Data Radiologist's Impression: Radiology results as stated below per my review and th e radiologist's interpretation: CT SCAN OF THE BRAIN WITHOUT IV CONTRAST CLINICAL HISTORY: Strokelike symptoms. Right-sided weakness. COMPARISON STUDY: No priors. TECHNIQUE: Unenhanced axial CT scan of the brain is performed from the vertex to the skull base. A dose lowering technique was utilized adhering to the principles of ALARA. CT DOSE: 638.56 mGycm FINDINGS: Brain parenchyma: The brain parenchyma is normal in appearance. There is no hemo rrhage, mass effect, or evidence of acute territorial ischemia by CT criteria. Bradshaw-white matter differentiation is preserved. No extra-axial fluid collection is seen. Ventricles, sulci, cisterns: Normal in configuration. Intracranial vasculature: The visualized intracranial vasculature at the skull base is normal in appearance. Calvarium: Unremarkable. Sinuses and mastoids: The visualized paranasal sinuses are clear. The mastoid air cells are well pneumatized. Orbits: The bony orbits are grossly intact. IMPRESSION: No acute intracranial abnormality. ACT 112: Negative or not required by law. Electronically signed by: Radames Bryan M.D. 11/08/2019 3:[address] ANGIOGRAM OF THE BRAIN; CT ANGIOGRAM OF THE NECK CLINICAL HISTORY: Right-sided weakness. COMPARISON STUDY: Unenhanced CT of the brain performed concurrently on 11/08/2019. CT of the neck dated 10/25/2019. TECHNIQUE: Following the IV administration of 118 of Optiray 320, CT angiogram of the head and neck was performed from the aortic arch to the vertex. Images are reviewed in the axial, sagittal, and coronal planes. 3-D MIPS images are created and assessed. IV contrast was administered without complication. All measurements were calculated based on NASCET criteria. A dose lowering technique was utilized adhering to the principles of ALARA. The examination is compromised by motion artifact. CT DOSE: 979.19 mGycm FINDINGS: Brain parenchyma: The brain parenchyma is normal in appearance. There is no hemorrhage, mass effect, or evidence of acute territorial ischemia by CT criteria. There is no evidence of enhancing mass lesion on the angiogram phase images. The ventricles, sulci, and cisterns are normal in configuration. Bradshaw- white matter differentiation is preserved. No extra-axial fluid collection is seen. Thoracic aorta: Visualized portions of the thoracic aorta are normal in caliber. The aortic arch demonstrates standard 3-vessel anatomy. Right carotid arterial system: The right common carotid artery is widely patent, as are the right internal and external carotid arteries. Left carotid arterial system: The left common carotid artery is widely patent, as are the left internal and external carotid arteries. Vertebral arteries: The vertebral arteries are widely patent and codominant. Subclavian arteries: Widely patent bilaterally. Intracranial vasculature: There is origin of the left posterior cerebral artery. The internal carotid arteries are patent at the skull base, as are the anterior and middle cerebral arteries bilaterally. There is a common origin of the anterior cerebral arteries. The right A1 segment is diminutive. The quita tebrobasilar system and posterior cerebral arteries are widely patent. The vertebral arteries are codominant. There is no aneurysm, high-grade stenosis, or focal vessel cut off seen throughout the intracranial circulation. Jugular veins: Patent bilaterally. Dural sinuses: Patent. Lung apices: Partially visualized upper lobe lung parenchyma appears clear. Soft tissues: There is subcutaneous gas and infiltration identified in the soft tissues of the right neck. This extends from the mid neck to the supraclavicular region. The visualized pharyngeal soft tissues are normal in appearance noting angiographic phase technique. The oropharyngeal airway appears widely patent. The salivary and thyroid glands are normal in appearance. Shotty cervical lymph nodes are again seen. Skeletal structures: The calvarium appears intact. The cervical spine is within normal limits. No lytic or blastic lesion is seen. Sinuses and mastoids: The paranasal sinuses are clear. The mastoid air cells are well pneumatized. IMPRESSION: 1. There is no hemorrhage, mass effect, or evidence of acute territorial ischemia by CT criteria noting angiographic phase technique. 2. Unremarkable CT angiogram of the brain. 3. Unremarkable CT angiogram of the neck. 4. There is subcutaneous gas and soft tissue infiltration identified in the soft tissues of the right neck, which is new from 10/25/2019. This could potentially be on an infectious basis, or could be iatrogenic if there has been recent instrumentation/surgery. Clinical correlation will be essential. ACT 112: Negative or not required by law. Electronically signed by: Radames Bryan M.D. 11/08/2019 4:[address] ANGIOGRAM OF THE BRAIN; CT ANGIOGRAM OF THE NECK CLINICAL HISTORY: Right-sided weakness. COMPARISON STUDY: Unenhanced CT of the brain performed concurrently on 11/08/2019. CT of the neck dated 10/25/2019. TECHNIQUE: Following the IV administration of 118 of Optiray 320, CT angiogram of the head and neck was performed from the aortic arch to the vertex. Images are reviewed in the axial, sagittal, and coronal planes. 3-D MIPS images are created and assessed. IV contrast was administered without complication. All measurements were calculated based on NASCET criteria. A dose lowering te chnique was utilized adhering to the principles of ALARA. The examination is compromised by motion artifact. CT DOSE: 979.19 mGycm FINDINGS: Brain parenchyma: The brain parenchyma is normal in appearance. There is no hemorrhage, mass effect, or evidence of acute territorial ischemia by CT criteri a. There is no evidence of enhancing mass lesion on the angiogram phase images. The ventricles, sulci, and cisterns are normal in configuration. Bradshaw-white matter differentiation is preserved. No extra-axial fluid collection is seen. Thoracic aorta: Visualized portions of the thoracic aorta are normal in caliber. The aortic arch demonstrates standard 3-vessel anatomy. Right carotid arterial system: The right common carotid artery is widely patent, as are the right internal and external carotid arteries. Left carotid arterial system: The left common carotid artery is widely patent, as are the left internal and external carotid arteries. Vertebral arteries: The vertebral arteries are widely patent and codominant. Subclavian arteries: Widely patent bilaterally. Intracranial vasculature: There is origin of the left posterior cerebral artery. The internal carotid arteries are patent at the skull base, as are the anterior and middle cerebral arteries bilaterally. There is a common origin of the anterior cerebral arteries. The right A1 segment is diminutive. The vertebrobasilar system and posterior cerebral arteries are widely patent. The vertebral arteries are codominant. There is no aneurysm, high-grade stenosis, or focal vessel cut off seen throughout the intracranial circulation. Jugular veins: Patent bilaterally. Dural sinuses: Patent. Lung apices: Partially visualized upper lobe lung parenchyma appears clear. Soft tissues: There is subcutaneous gas and infiltration identified in the soft tissues of the right neck. This extends from the mid neck to the supraclavicular region. The visualized pharyngeal soft tissues are normal in appearance noting angiographic phase technique. The oropharyngeal airway appears widely patent. The salivary and thyroid glands are normal in appearance. Shotty cervical lymph nodes are again seen. Skeletal structures: The calvarium appears intact. The cervical spine is within normal limits. No lytic or blastic lesion is seen. Sinuses and mastoids: The paranasal sinuses are clear. The mastoid air cells are well pneumatized. IMPRESSION: 1. There is no hemorrhage, mass effect, or evidence of acute territorial ischemia by CT criteria noting angiographic phase technique. 2. Unremarkable CT angiogram of the brain. 3. Unremarkable CT angiogram of the neck. 4. There is subcutaneous gas and soft tissue infiltration identified in the soft tissues of the right neck, which is new from 10/25/2019. This could potentially be on an infectious basis, or could be iatrogenic if there has been recent instrumentation/surgery. Clinical correlation will be essential. ACT 112: Negative or not required by law. Electronically signed by: Radames Bryan M.D. 11/08/2019 4:05 PM MR brain wo con HISTORY: 29 years-old Female R weakness acute right-sided weakness COMPARISON: CT head, CTA head and neck of same day TECHNIQUE: Multiplanar multisequence MRI of the brain was obtained without the use of IV contrast. FINDINGS: Med Surg Rn localizer images demonstrate no gross extracranial abnormality. There is no restricted diffusion to suggest acute or subacute infarct. Decreased signal o n ADC map within the left cerebral hemisphere is artifactual. Midline structures including the corpus callosum, brainstem, optic chiasm, pituitary gland appear unremarkable and sagittal T1 series. Tiny subcentimeter lobular pineal gland cyst. No cerebellar tonsillar herniation. No acute intracranial hemorrhage, midline shift, abnormal extra-axial collection, hydrocephalus or intracranial mass. There are no significant T2/flair signal abnormalities of the brain parenchyma. Major flow voids at the level of the skull base appear patent. Mastoid air cells are clear. Mild mucosal thickening of the nasal terminates and ethmoid air cells. Skull, soft tissues and orbits are unremarkable. IMPRESSION: No acute intracranial abnormality, specifically there is no acute or subacute infarct. ACT 112: Negative or not required by law. The above report was generated using voice recognition software. It may contain grammatical, syntax or spelling errors. Electronically signed by: Henry Brown M.D. 11/08/2019 5:24 PM ECG Data Attestation: I personally reviewed and interpreted this ECG as follows: Indication: + weakness Rate (beats per minute): 118 Rhythm: + sinus tachycardia ECG [place]: + Normal ECG ST segments: no ST depression and no ST elevation ECG Findings: no PVCs Blood Pressure Blood Pressure Findings: Elevated blood pressure Blood Pressure Disposition: further management by hospitalist NAOMI [place] Patient is a 29-year-old female presenting as a EMS stroke alert from the surgery center. Was undergoing surgical procedure in the right upper clavicular region upon waking from anesthesia significant right-sided arm and leg deficits with some right facial droop. CT head and angiograms without acute pathology noted. Tele-stroke was initiated. Labs otherwise unremarkable. Discussion with tele-stroke and patient and patient's decided against TPA electively initially. Was sent for emergent MRI to evaluate for possible stroke. Somewhat atypical given her age. Patient require admission for further evaluation by neurology. Hospitalist was alerted. MRI does not show evidence of acute stroke. Patient updated. Consented for blood given drop in anemia but no active bleeding or recent bleeding type concerns are reported. Seems an atypical distribution for cervical injury or more peripheral neuropathy. Impression & Plan Right sided weakness Discharge Plan Visit Data *Final* Discharge Date/Time: 11/08/19 18:00 Chief Complaint: Stroke/CVA Symptoms ED Provider: Juan Camacho ED Midlevel Provider: Cintia Cruz Discharge Problem: Right sided weakness Patient Disposition: Admitted As Inpatient Discharge Instructions Interventions: ED Discharge Assessment Last Done: 11/08/19 18:00 The scribe's documentation has been prepared under my direction and personally reviewed by me in its entirety. I confirm that the note above accurately reflects all work, treatment, procedures, and medical decision making performed by me.
[2019-11-08 22:02] LABS: Hematocrit (blood only) 38.1 % (37-47); Hemoglobin 13.2 g/dL (12.0-16.0)
[2019-11-08] MEDS: HEPARIN SOD 5,000 UNIT/0.5 ML VIAL SQ SCH (22:12)
--- NOTE | 2019-11-08 22:21 | Magnetic Resonance Report ---
MR cervical spine wo con HISTORY: 29 years-old Female Eval for cord compression, R hemiparesis patient presents with acute ri ght-sided weakness COMPARISON: Brain MRI of same day TECHNIQUE: Multiplanar multisequence MRI of the cervical spine was obtained without the use of IV con trast. FINDINGS: 8 mm lesion of the T1 vertebral body with 11 mm lesion of the T3 vertebral body are noted demonstrati ng increased T1 and T2 signal compatible with vertebral body hemangiomata. Bone marrow signal is othe rwise within normal limits. No acute fracture, subluxation or significant soft tissue edema. The imag ed posterior fossa structures are fossa, brainstem, cervical and imaged thoracic spinal cord appears normal. No central canal lesions or epidural fluid collections. No gross abnormality identified on th e journeyman mechanic localizer images within the imaged upper chest or neck. There is no significant discogenic de generation, spondylitic spurring or facet arthrosis identified. C2-C3: No central canal or foraminal narrowing. C3-C4: No central canal or foraminal narrowing. C4-C5: No central canal or foraminal narrowing. C5-C6: No central canal or foraminal narrowing. C6-C7: No central canal or foraminal narrowing. C7-T1: The central canal or foraminal narrowing. IMPRESSION: 1. No acute cervical spine fracture or subluxation. 2. No significant degenerative changes, central canal or foraminal narrowing. 3. Normal signal and appearance of the cervical spinal cord. ACT 112: Negative or not required by law. The above report was generated using voice recognition software. It may contain grammatical, syntax o r spelling errors. Electronically signed by: Henry Brown M.D. 11/08/2019 10:20 PM
[2019-11-09] MEDS: HEPARIN SOD 5,000 UNIT/0.5 ML VIAL SQ SCH (04:44)
[2019-11-09] MEDS: SODIUM CHLORIDE 0.9% 1000ML 1,000 ML IV SCH ×2 (04:44→13:19)
[2019-11-09] MEDS: ACETAMINOPHEN 1,000 MG/100 ML VIAL IV PRN (04:51)
[2019-11-09 06:50] LABS: Estimated Average Glucose 105 mg/dl; Hemoglobin A1C 5.3 % (4.5-5.6)
[2019-11-09 07:29] LABS: Basophils # (auto) 0.01 K/uL (0-0.2); Basophils % (auto) 0.1 %; Hematocrit (blood only) 36.2 % (37-47); Hemoglobin 12.2 g/dL (12.0-16.0); Immature Granulocytes # (auto) 0.03 K/uL (0.00-0.02); Immature Granulocytes % (auto) 0.2 %; Lymphocytes # (auto) 1.31 K/uL (1.2-3.4); Lymphocytes % (auto) 9.4 %; Mean Corpuscular Hemoglobin 29.8 pg (25-34); Mean Corpuscular Hgb Conc 33.7 g/dL (32-36); Mean Corpuscular Volume 88.5 fL (80-100); Monocytes # (auto) 0.53 K/uL (0.11-0.59); Monocytes % (auto) 3.8 %; Neutrophils # (auto) 12.08 K/uL (1.4-6.5); Neutrophils % (auto) 86.5 %; Platelet Count 359 K/uL (130-400); RDW Coefficient of Variation 12.4 % (11.5-14.5); Red Blood Count 4.09 M/uL (4.2-5.4); White Blood Count 13.96 K/uL (4.8-10.8)
[2019-11-09 08:00] LABS: BUN Creatinine Ratio 20.3 (10-20); Calcium 8.4 mg/dl (8.5-10.1); Creatinine Clr Calc Pharmacy 149.7 ml/min; Est GFR (African American) 143.4; Est GFR (Non-African American) 123.7; Potassium 3.8 mmol/L (3.5-5.1)
--- NOTE | 2019-11-09 08:02 | Neurology Consultation ---
Date of Consultation November 09, 2019 Assessment & Plan (1) Right sided weakness: Lacey Levine is a 29 yo woman w/ PMH of asthma, migraine, vitamin D deficiency, seasonal allergies and right-sided neck mass who p/t [facility] on 11/08/19 for acute onset of right face/arm/leg weakness, tingling and mild numbness. # Transient R-sided numbness/tingling/weakness: developed a headache afterwards, suspect atypical migraine aura followed by migraine. No evidence of stroke on MRI brain or lesion on MRI C-spine to explain symptoms. She did have hypocalcemia and hypomagnesemia in the ED, however, that alone would be unlikely to cause unilateral symptoms (would expect bilateral symptoms). She did have relative hypoglycemia (glucose 76 in ED with ketones in urine), which could hypothetically cause transient neurological symptoms, however she does not have a history of diabetes and otherwise healthy individual should be able to tolerate blood glucose at that level. -No further work-up needed at this time -Would treat migraine with IV fluids, Toradol/Compazine/Benadryl x1 dose and 1g Mg IV - if continues to have RLE weakness, PT eval, but suspect that this will get better over the course of the day Thank you for this interesting consult. Plan of care was discussed with primary team. Please text or call with any questions. (2) Migraines: (3) Hypocalcemia: History of Present Illness Attending Physician: Gene Sargent History of Present Illness Lacey Levnie is a 29 yo woman w/ PMH of asthma, migraine, vitamin D deficiency, seasonal allergies and right-sided neck mass who p/t [facility] on 11/08/19 for acute onset of right face/arm/leg weakness, tingling and mild numbness. Last seen well prior to procedure to remove nevi from her neck ~12:30pm. She had general anesthesia with rocuronium, propofol, sevoflurane and received Versed, fentanyl 100 mcg, Zofran, lidocaine and Zantac in the perioperative. She tolerated the procedure well but when she woke up in the PACU, she was noted to have the above neurological symptoms prompting stroke alert to be called. On arrival in the ED, blood pressure 123/79, respiratory rate 24, heart rate 118, satting 99% on room air. Labs notable for WBC 10.3, hemoglobin 9.2, platelets 253, BMP unremarkable, glucose 76, troponin negative, calcium low at 7.5, magnesium low at 1.3. Further lab work showed A1c 5.3, LDL 89, UA 1+ ketones but no infection. She does have recent diagnosis of vitamin D deficiency with vitamin D 25 OH 15.4. EKG showed sinus tachycardia. Independent review of the [facility] images showed: CT head shows no hemorrhage or hypodensity; CTA head and neck shows no LVO, high-grade stenosis or aneurysm; MRI brain showed no acute infarct, Chiari malformation and a single small T2 hyperintensity along the right lateral ventricle. MRI of the cervical spine showed no central canal or neuroforaminal stenosis, no syrinx, no fracture, no disc herniations or other degenerative changes; there was a suspected vertebral body hemangioma at T1 and T3 vertebral bodies, unrelated to her presentation. On examination today, she details that she has a h/o "hemiplegic migraines" that started when she was a teenager so an aura of weakness prior to headache is not unlike her previous migraines, however the current headache is much less severe and bifrontal in character compared to her previous headaches. Allergies Allergy/AdvReac Type Severity Reaction Status Date / Time No Known Allergies Allergy Verified 11/08/19 15:43 Home Medications Home Medications Medication Instructions Recorded Confirmed Type fexofenadine 180 mg PO DAILY PRN 10/05/19 11/08/19 History sumatriptan succinate 100 mg PO DAILY PRN 10/05/19 11/08/19 History cholecalciferol (vitamin D3) 2,000 2,000 units PO DAILY #30 tab 11/01/19 11/08/19 Rx unit tablet hydrocodone 5 mg-acetaminophen 325 See Rx Instructions PO Q4H PRN #30 11/07/19 11/08/19 Rx mg tablet tab Patient History Medical History Environmental allergies History of shingles Hx of migraines Surgical History History of lymph node excision History of tooth extraction Hx of tonsillectomy Nausea and vomiting after administration of anesthetic agent Family History Mother Breast cancer Migraine Seizure disorder Grandmother (Maternal) Migraine Other No significant family history Social History Preferred Language: Citizen Of The [place] Communication Ability: Effective Visual Impairment: No Limitations Hearing Ability: Normal Volunteer Coordinator Required: No Beliefs That Will Affect Care: None marital status: Current Living Situation: Spouse Current Living Situation Comment: and two sons current occupational status: unemployed Other Information That Helps Us Care for You: No Feels Safe at Home: Yes Smoking Status: Never smoker Second Hand Exposure: No ; Hx Alcohol Use: Yes Alcohol type: hard liquor Hx Substance Use: No Childhood Exposure to Second-Hand Smoke: No Diet Comment: regular caffeine: Yes (coffee) during the past year weight has: remained stable Dental Care, Regularly: Yes Physical Activity Frequency: 1-2 Times per Week Physical Activity Frequency Comment: walking Seatbelt Use: always Sunscreen Use: Yes Do you think of yourself as: lesbian/de anda/homosexual Review of Systems Review of Systems: 14 point review of systems completed and negative except as in HPI. Physical Exam Physical Exam: General Exam: GEN: NAD, sitting in bed. HEENT: No conjunctival injection, no rhinorrhea. CV: RRR, no peripheral edema PULM: Nonlabored respirations on room air. Neuro Exam: MS: Awake and Alert. Oriented to person, place, and date. Speech fluent and appropriate without dysarthria or paraphasic errors. Language intact including naming, comprehension, repetition. Cognition and memory grossly intact. Attention intact. No neglect. CN: Visual myers full. No extinction to double simultaneous stimuli. No optic disc edema on fundoscopic exam. PERRLA OU. EOMI without nystagmus. Facial sensation intact to LT. Facial muscles full and symmetric. Hearing intact to conversation. Uvula midline with symmetric palatal elevation. Shoulder shrug normal. Tongue midline. MOTOR: Normal bulk and tone. No pronator drift. BUE strength 5-/5 at R deltoid, 5/5 L deltoid, 5/5 biceps, triceps, wrist flexors and extensors, and hand grasp bilaterally. BLE strength 5-/5 at R iliopsoas with decreased effort, 5/5 L iliopsoas, 5/5 hamstrings, quadriceps, tibialis anterior, and gastrocnemius bilaterally. REFLEXES: 2+ at biceps, triceps, brachioradialis, patella and Achilles bilaterally. Flexor plantar responses bilaterally. SENSORY: Intact to LT without extinction to double simultaneous stimuli. Vibration and temperature intact throughout. COORDINATION: No dysmetria or ataxia on [id number] and [id number] bilaterally. Normal Arturo bilaterally. GAIT: deferred given dizziness Results & Data Vital Signs (Past 12 Hours) Vital Signs Temp Pulse Pulse Resp BP Pulse Ox 11/09/19 03:39 36.6 C 93 H 17 101/66 96 11/09/19 00:17 36.7 C 86 17 104/68 96 11/08/19 23:03 87 PG Care Time/CCT Total # of Minutes Spent Total Time Spent with Patient: Total time spent is greater than 50% in coordination of care (as documented) at patient's floor/unit and/or counseling patient: Coding Level of Care Code 31627 Inpt Consult Level 5 Diagnoses Right sided weakness R53.1 Migraines G43.909 Hypocalcemia E83.51
[2019-11-09] MEDS ORDERED: CHOLECALCIFEROL 1,000 UNITS 25 MCG TAB PO SCH (09:00)
[2019-11-09] MEDS ORDERED: DiphenhydrAMINE HCL 50 MG/ML VIAL IV PRN (09:03)
[2019-11-09] MEDS ORDERED: KETOROLAC TROMETHAMINE 15 MG/ML VIAL IV PRN (09:03)
[2019-11-09] MEDS ORDERED: PROCHLORPERAZINE 10 MG in SYRINGE 8 ML IV PRN (09:15)
[2019-11-09] MEDS ORDERED: STROKE PATIENT DISCHARGE STA (13:30)
--- NOTE | 2019-11-09 14:29 | Discharge Summary ---
Date of Service November 09, 2019 Admission HPI Per Admitting Provider This is a 29 yo F with PMhx of asthma, migraines, obesity with BMI of 31.7, vitamin D deficiency, and seasonal allergies who presented to the ER as a stroke alert. The patient presented to the ER after an elective operation performed by ENT, Dr. Pleitez earlier today; removal of right neck nevus which measures 9 mm, and right supraclavicular exploration where it was found to have fibrosis and asymmetric fat, no lipoma, no definitive mass, and was thought likely related to previous excisional biopsy of the right supraclavicular lymph node as a child when she was diagnosed with cat scratch fever. The patient reports that she underwent her procedure today and was told that overall everything went well, and per chart her procedure had an uneventful intraoperative course. After surgery, which occurred around 1 PM, she was able to lift her bottom in bed but then realized she was unable to move her right arm or leg. She reports very minimal improvement since her surgical procedure. She has difficulty moving her neck to the right because she feels stiff, but is able to. She denies any pain in general. She is able to swallow without difficulty. Patient denies any acute pain over the area which was operated on on the right shoulder, she reports that there is still some numbness and tingling on the right side of her neck when palpated. She denies any difficulty breathing, shortness of breath, chest pain, chest pressure or palpitations. She has sensation to light touch in extremities but states it is dulled in nearly all areas on the right, not on the left. The patient was under general anesthesia and intubated during procedure. She has never had general anesthesia before, but no known issues with other forms of anesthesia in the past. Other surgeries include wisdom teeth extraction, tonsil extraction, hx of lymph node resection as a child. Her is at bedside, other questions and concerns were addressed. Pt found to be tachycardic with HR of 118 and maintains around 110, and RR of 31 improved to 20 while in the ER. Her hgb is found to be 9.2, where baseline is 13-14. INR = 1.3. Principal Diagnosis Complex migraine with neurological symptoms Discharge Exam Constitutional WD/WN, vitals as above Eyes + anicteric sclerae ENMT Ears: + hearing impairment Neck trachea midline Respiratory normal respiratory effort, lungs clear to auscultation Cardiovascular RRR, no murmur, no edema Gastrointestinal (Abdomen) Inspection/Auscultation: normal bowel sounds Percussion/Palpation: abdomen soft; abdomen nontender Musculoskeletal Head/Neck/Chest: normocephalic and head atraumatic Skin no rashes, warm and dry Neurologic moves all extremities Motor/Sensory: no tremor Coordination: normal rapid alternating movements Psychiatric A+Ox3, euthymic affect Discharge Data Allergies Allergy/AdvReac Type Severity Reaction Status Date / Time No Known Allergies Allergy Verified 11/08/19 15:43 Consultations 11/08/19 16:29 ED Decision to Admit Stat 11/08/19 18:19 Consult Case Management - Discharge Planning Routine Consult Neurology Routine Ordered Studies 11/08/19 15:33 CT angio head w con Stat CT angio neck with con Stat CT head/brain wo con Stat 11/08/19 16:29 MR brain wo con Stat 11/08/19 18:02 MR cervical spine wo con Stat Hospital Course (1) Right hemiplegia: - RESOLVED -Ultimately developed a headache however not similar to her past migraines. As well, migraines are not significantly common for her. -Neurological symptoms resolved spontaneously and did improve and his headache resolved -treated with migraine cocktail -Multiple imaging modalities obtained and largely normal -was found to have T1 and T3 hemangiomas and vertebral bodies --Per neurology, do not suspect this is creating her issues; would agree however per academic review that T1 could innervate the upper extremities which it is possible could be causing her initial presentation patient resulting in the need to have the supraclavicular region exploration -did advise patient to see after she recovers from this procedure if her symptoms still remain that it could be worth exploring these findings however it is very small population that typically have symptoms related to vertebral body hemangiomas --T3 nerve innervation would be more chest related and would not explain her findings -If she would have ongoing symptoms would recommend referral to o rthopedics/spine to see if these hemangiomas could be creating issues for her however again very rarely are these symptomatic -Neurology consulted and evaluated patient -please refer to their consultation for recommendations and their evaluation (2) Tachycardia: -Normal sinus rhythm with occasional sinus tachycardia on monitor -may be a component of anxiety as she does report concern due to her initial presentation -On initial laboratories her hemoglobin did drop to 9.2 which likely was lab error as this has normalized on repeat testing -no obvious signs of bleeding at this time (3) Mass of right side of neck: -S/P ENT procedure: Dr. Pleitez surgical exploration of the right supraclavicular region -Exploration shows fibrosis and asymmetrical fat -possible related to previous excisional biopsy of lymph node when she was child -Pathology from procedure is pending (4) Palpitations: - History of such, none currently (5) Migraines: -History of such, uses Imitrex as outpatient (6) Seasonal allergies: -Stable, continue fexofenadine 180 mg daily (7) Vitamin D deficiency: -Continue daily supplementation -Last level was 15.4 on 10/31/18 (8) Asthma: -Stable, no recent flares, not on long-acting steroids or inhalers Total Time Total Time Spent Total Time Spent (In Minutes): Greater than 30 minutes Discharge Plan Discharge Items Patient Disposition: Home - Self-Care Reason For Visit: R SIDED WEAKNESS,STROKE ALERT,ANEMIA Discharge Diagnosis: Complex Migraine with Neurological Symptoms Activity: Resume your previous activity Non-emergency contact: Primary Care Provider Call non-emergency contact if: you have any medication questions, your symptoms worsen and you have a fever Follow-up/Referrals: Dina Daily DO [Primary Care Provider] - Diet: Regular Addtl Attending Provider Instructions: Complex Migraine: - Given your history of migraines and normal imaging this can be explained by possible migraine headaches with neurological symptoms. It is possible it initially started as an aura and progressed to a headache. Which this may have been triggered some from dehydration, medications, stress from procedure, sleep deprivation, etc. - Your symptoms are improving which is great. Thankfully the MRI did not reveal a stroke and you do not carry risk factors for this which is also great. - Recommend to avoid things that trigger headaches for you. Keep hydrated and rest over the next couple days. If you headache re-occurs you can take the Sumatriptan to try and knock it out sooner. Using some NSAID (ibuprofen, tylenol) are normally the best for migraines. T1/T3 Vertebral Body Hemangiomata - The MRI of your upper back did reveal this. These are benign clumps of blood vessels and are most common in the thoracic (T-Spine) and low back. They most of ten appear between age 30-50. Majority of the time they are asymptomatic. It is rare but they can cause some neurological symptoms for some individuals. - If you symptoms to continue to return it may not be a bad thing to have looked at - T1 nerves- nerves can cause of neck pain and upper back pain - it is possible if could have caused some of your initial symptoms prior to your procedure. But doesn't explain the full extent of your neurological symptoms that brought you to the hospital and especially since they are improving. - T3 nerves tends to play more a role with controlling chest wall muscles. - Being post-operative it may be tricky to fully assess the right arm but if the numbness and tingling continues it may be best to see a back specialist. We have Dr. Jeremy Vinson and Dr. Jason Sheth locally that you could see. Pending Studies at Discharge: No Stand-Alone Forms: My [facility], Smoking Cessation Medications and DC Order Prescriptions: Continued cholecalciferol (vitamin D3) 2,000 unit tablet 2,000 units PO DAILY Qty: 30 RF: 0 hydrocodone-acetaminophen [[place]] 5-325 mg tablet See Rx Instructions PO Q4H PRN (Reason: pain) Qty: 30 RF: 0 sumatriptan succinate 100 mg tablet 100 mg PO DAILY PRN (Reason: Migraine Headache) RF: 0 fexofenadine 180 mg tablet 180 mg PO DAILY PRN (Reason: Allergy Symptoms) RF: 0 Discharge Orders: Discharge Order (Routine); Ordered 11/09/19 Ordered By: Elayne Mcneal Admission Data Admit Date/Time: 11/08/19 17:11 Attending Provider: Gene Sargent Admit Provider: Shruthi Epperson Primary Care Provider: Dina Daily Other Providers: Shruthi Epperson ; Chioma Camacho Other Interventions: Discharge Summary Assessment (RN) Last Done: 11/09/19 13:48 DC Date/Time DO NOT enter until pt leaves facility: 11/09/19 14:30 Coding Level of Care Code D/C Day Management >30 mins Diagnoses Right hemiplegia G81.91 Tachycardia R00.0 Mass of right side of neck R22.1 Palpitations R00.2 Migraines G43.909 Seasonal allergies J30.2 Vitamin D deficiency E55.9 Asthma J45.904
== END 2019-11-09 14:30 | disposition home or self-care (01) | DRG 103 ==
LOC: ED 15:32 → 2S 17:11 → SUATTDRO 17:11 → 2S 18:00